=== PATIENT | female | born 1985 | race Two or more races ===

== ENCOUNTER 2024-03-31 22:04 | Emergency (ER) | payer MEDICAID, OTHER ==
[~2024-03-31] VITALS: Ht 165.1 cm; Wt 72.6 kg
[2024-03-31 22:15] VITALS: BP 118/61; PULSE 70; RESP 16; TEMP 98.1; O2SAT 100
[2024-03-31] MEDS: LIDOCAINE/EPI 1% 1:100000 20 ML VIAL INJ ONE (23:45)
[2024-04-01 00:09] VITALS: O2SAT 100
== END 2024-04-01 00:12 | disposition home or self-care (01) ==
LOC: MED 22:04
DX: L02.212 Cutaneous abscess of back [any part, except buttock and flank] (principal); Z79.899 Other long term (current) drug therapy
CPT/HCPCS: 10060; 99282; J2001